=== PATIENT | male | born 1970 | race African-American/Black ===

== ENCOUNTER 2022-06-12 15:37 | Inpatient (IN) | payer BC, MEDICAID ==
[~2022-06-12] VITALS: Ht 172.7 cm; Wt 60.8 kg
[~2022-06-12 15:37] MED LIST: AMLO2.5T45 PO; CHOL100046 PO; LOSA50TA41 PO; OMEP20CA14 PO
[2022-06-12] MEDS ORDERED: albuterol (15:40)
[2022-06-12] MEDS ORDERED: IPRATROPIUM BROMIDE (0.02%) 0.5MG/2.5ML NEB HHN STA (15:49)
[2022-06-12] MEDS ORDERED: METHYLPREDNISOLONE SOD SUCC 125 MG/2 ML VIAL IV STA (15:49)
[2022-06-12] MEDS ORDERED: ONDANSETRON HCL 4MG/2ML INJ IV STA ×2 (15:49→18:16)
[2022-06-12] MEDS ORDERED: MORPHINE SULFATE 4 MG/ML CPJ (NOT FOR IM USE) IV STA ×2 (15:49→18:16)
[2022-06-12] MEDS ORDERED: ALBUTEROL (0.083%) 2.5MG/3ML NEB HHN STA (15:49)
[2022-06-12] MEDS ORDERED: FUROSEMIDE 40MG/4ML VIAL IVP ONE (16:00)
[2022-06-12] MEDS ORDERED: SODIUM CHLORIDE 0.9% 1,000 ML IV ONE (16:00)
[2022-06-12 16:11] LABS: BASOPHILS % 0.5 % (0.0-2.0); HEMATOCRIT. 30.2 % (42.0-52.0); HEMOGLOBIN. 8.8 g/dL (14.0-18.0); LYMPHOCYTES % 33.9 % (20.0-50.0); MEAN CORPUSCULAR HEMOGLOBIN 20.2 pg (28.0-32.0); MEAN CORPUSCULAR VOLUME 69.6 fL (80.0-94.0); MEAN PLATELET VOLUME 8.6 fl (7.4-10.4); MONOCYTES % 11.9 % (2.0-8.0); NEUTROPHILS % 53.7 % (40.0-76.0); PLATELET 332 x1000/uL (130-400); RED BLOOD CELL COUNT 4.35 mill/uL (4.7-6.1); RED CELL DISTRIBUTION WIDTH 24.9 % (11.6-14.6)
[2022-06-12 16:17] LABS: CHLORIDE 105 mEq/L (98-107)
[2022-06-12 18:18] LABS: PLATELET ESTIMATE NORMAL
[2022-06-12] MEDS ORDERED: IOHEXOL-350 100 ML BOTTLE ONE (18:29)
[2022-06-12] MEDS ORDERED: ACETAMINOPHEN 500MG TABLET PO ONE (20:45)
[2022-06-12] MEDS ORDERED: POTASSIUM CHLORIDE 20MEQ TABLET SR PO ONE (21:15)
[2022-06-12 22:40] VITALS: BP 156/108
[2022-06-12 22:58] VITALS: BP 156/108
[2022-06-13] VITALS: BP 142/78
[2022-06-13] MEDS ORDERED: HYDROCODONE/ACETAMINOPHEN 5/325MG TABLET PO PRN (00:15)
[2022-06-13] MEDS ORDERED: CLONIDINE 0.1MG TABLET PO PRN (00:15)
[2022-06-13] MEDS ORDERED: ACETAMINOPHEN 650MG/20.3ML UDC PO PRN (00:15)
[2022-06-13] MEDS ORDERED: LEVOFLOXACIN 500MG TABLET PO SCH ×2 (01:00→22:00)
[2022-06-13 04:00] VITALS: BP 162/110
[2022-06-13] MEDS ORDERED: POTASSIUM CHLORIDE 20MEQ TABLET SR PO NR (04:00)
[2022-06-13 05:33] LABS: HEMOGLOBIN. 7.8 g/dL (14.0-18.0); LYMPHOCYTES % 7.2 % (20.0-50.0); MEAN CORPUSCULAR HEMOGLOBIN 20.5 pg (28.0-32.0); MEAN PLATELET VOLUME 8.8 fl (7.4-10.4); NEUTROPHILS % 89.8 % (40.0-76.0); PLATELET 245 x1000/uL (130-400); RED BLOOD CELL COUNT 3.83 mill/uL (4.7-6.1); RED CELL DISTRIBUTION WIDTH 24.3 % (11.6-14.6)
[2022-06-13 06:02] LABS: CHLORIDE 103 mEq/L (98-107)
[2022-06-13 06:32] LABS: HDL CHOLESTEROL 91 mg/dL (40-59); LDL CHOLESTEROL 59 mg/dL (5-100)
[2022-06-13 08:00] VITALS: BP 162/101
[2022-06-13] MEDS ORDERED: METHYLPREDNISOLONE SOD SUCC 40 MG/ML VIAL IV SCH (09:00)
[2022-06-13] MEDS ORDERED: ENOXAPARIN 40MG/0.4ML SYR SUBCUT SCH (09:00)
[2022-06-13] MEDS ORDERED: POTASSIUM CHLORIDE 20MEQ TABLET SR PO SCH (09:00)
[2022-06-13] MEDS: AMLODIPINE 10MG TABLET PO SCH (11:22)
[2022-06-13 12:00] VITALS: BP 161/95
[2022-06-13] MEDS ORDERED: LORAZEPAM 1MG TABLET PO PRN (12:30)
[2022-06-13 14:43] LABS: TOTAL IRON BINDING CAPACITY 399 ug/dL (250-450)
[2022-06-13 15:12] LABS: FOLIC ACID (FOLATE) SERUM 5.1 ng/mL (>5.38)
[2022-06-13 16:00] VITALS: BP 144/96
[2022-06-13 20:00] VITALS: BP 150/106
[2022-06-13] MEDS: PANTOPRAZOLE 40MG DR TABLET PO SCH (20:41)
[2022-06-13] MEDS ORDERED: PANTOPRAZOLE 40MG DR TABLET PO SCH (21:00)
[2022-06-14] VITALS: BP 145/91
[2022-06-14 04:00] VITALS: BP 148/95
[2022-06-14] MEDS: IPRATROPIUM/ALBUTEROL 0.5-3(2.5)MG/3ML NEB HHN SCH ×4 (05:04→21:03)
[2022-06-14] MEDS: PANTOPRAZOLE 40MG DR TABLET PO SCH ×2 (06:38→21:12)
[2022-06-14 08:00] VITALS: BP 138/87
[2022-06-14] MEDS: FOLIC ACID/VITAMIN B COMP W-C TABLET PO SCH (08:56)
[2022-06-14] MEDS: THIAMINE HCL 100MG TABLET PO SCH (08:57)
[2022-06-14] MEDS: AMLODIPINE 10MG TABLET PO SCH (08:57)
[2022-06-14 12:00] VITALS: BP 149/101
[2022-06-14 12:56] LABS: *AMPHETAMINES SCREEN URINE NEGATIVE (NEGATIVE); *BARBITURATES SCREEN URINE NEGATIVE (NEGATIVE); *BENZODIAZEPINES SCREEN URINE NEGATIVE (NEGATIVE); *COCAINE SCREEN URINE NEGATIVE (NEGATIVE); CANNABINOID URINE SCREEN NEGATIVE (NEGATIVE); METHADONE URINE SCREEN NEGATIVE (NEGATIVE); OPIATES URINE SCREEN PRESUMTIVE POSITIVE (NEGATIVE); PHENCYCLIDINE URINE SCREEN NEGATIVE (NEGATIVE)
[2022-06-14 16:00] VITALS: BP 143/103
[2022-06-14] MEDS: IRON SUCROSE COMPLEX 100 MG/5 ML ML IV SCH (17:43)
[2022-06-14 18:06] LABS: BASOPHILS % 0.3 % (0.0-2.0); EOSINOPHILS % 0.1 % (0.0-5.0); HEMATOCRIT. 33.5 % (42.0-52.0); HEMOGLOBIN. 9.7 g/dL (14.0-18.0); LYMPHOCYTES % 25.3 % (20.0-50.0); MEAN CORPUSCULAR HEMOGLOBIN 20.1 pg (28.0-32.0); MEAN CORPUSCULAR VOLUME 69.4 fL (80.0-94.0); MEAN PLATELET VOLUME 8.4 fl (7.4-10.4); MONOCYTES % 12.6 % (2.0-8.0); NEUTROPHILS % 61.7 % (40.0-76.0); PLATELET 261 x1000/uL (130-400); RED BLOOD CELL COUNT 4.83 mill/uL (4.7-6.1); RED CELL DISTRIBUTION WIDTH 26.4 % (11.6-14.6)
[2022-06-14 18:24] LABS: CHLORIDE 100 mEq/L (98-107)
[2022-06-14 20:00] VITALS: BP 140/101
[2022-06-15] VITALS: BP 146/93
[2022-06-15] MEDS: IPRATROPIUM/ALBUTEROL 0.5-3(2.5)MG/3ML NEB HHN SCH ×6 (01:59→20:00)
[2022-06-15 04:00] VITALS: BP 150/99
[2022-06-15 05:55] LABS: BASOPHILS % 0.5 % (0.0-2.0); EOSINOPHILS % 0.9 % (0.0-5.0); HEMATOCRIT. 28.3 % (42.0-52.0); HEMOGLOBIN. 8.5 g/dL (14.0-18.0); LYMPHOCYTES % 25.2 % (20.0-50.0); MEAN CORPUSCULAR HEMOGLOBIN 20.6 pg (28.0-32.0); MEAN CORPUSCULAR VOLUME 68.5 fL (80.0-94.0); MEAN PLATELET VOLUME 8.7 fl (7.4-10.4); MONOCYTES % 13.6 % (2.0-8.0); NEUTROPHILS % 59.8 % (40.0-76.0); PLATELET 218 x1000/uL (130-400); RED BLOOD CELL COUNT 4.13 mill/uL (4.7-6.1); RED CELL DISTRIBUTION WIDTH 26.4 % (11.6-14.6)
[2022-06-15 05:58] LABS: PROTHROMBIN TIME 11.1 sec (9.6-11.0)
[2022-06-15] MEDS: PANTOPRAZOLE 40MG DR TABLET PO SCH ×2 (06:46→21:14)
[2022-06-15 07:01] LABS: CHLORIDE 101 mEq/L (98-107)
[2022-06-15] MEDS: AMLODIPINE 10MG TABLET PO SCH (09:00)
[2022-06-15] MEDS: FOLIC ACID/VITAMIN B COMP W-C TABLET PO SCH (09:00)
[2022-06-15] MEDS: THIAMINE HCL 100MG TABLET PO SCH (09:00)
[2022-06-15 09:16] VITALS: BP 146/95
[2022-06-15] MEDS ORDERED: KCL 20MEQ/100ML PREMIX 100 ML IV NR (11:00)
[2022-06-15 12:00] VITALS: BP 144/99
[2022-06-15] MEDS ORDERED: OMEP40CA20 MT (12:46)
[2022-06-15 15:36] LABS: PLATELET ESTIMATE NORMAL
[2022-06-15] MEDS ORDERED: PROPOFOL 200MG/20ML VIAL IV ONE (16:19)
[2022-06-15] MEDS ORDERED: MIDAZOLAM HCL 2 MG/2 ML VIAL ONE (16:19)
[2022-06-15] MEDS ORDERED: DEXAMETHASONE 4MG/ML 1ML VIAL ONE (16:42)
[2022-06-15] MEDS ORDERED: ONDANSETRON HCL 4MG/2ML INJ ONE (16:42)
[2022-06-15 18:00] VITALS: BP 133/102
[2022-06-15] MEDS: IRON SUCROSE COMPLEX 100 MG/5 ML ML IV SCH (18:27)
[2022-06-15 20:00] VITALS: BP 140/97
[2022-06-15] MEDS ORDERED: NALOXONE HCL 0.4MG/ML VIAL IV PRN (22:15)
[2022-06-16] VITALS: BP 135/92
[2022-06-16] MEDS: IPRATROPIUM/ALBUTEROL 0.5-3(2.5)MG/3ML NEB HHN SCH ×2 (01:02→04:00)
[2022-06-16 04:00] VITALS: BP 137/99
[2022-06-16] MEDS: PANTOPRAZOLE 40MG DR TABLET PO SCH (06:17)
[2022-06-16 07:08] LABS: BASOPHILS % 0.2 % (0.0-2.0); EOSINOPHILS % 0.2 % (0.0-5.0); HEMATOCRIT. 29.8 % (42.0-52.0); HEMOGLOBIN. 8.9 g/dL (14.0-18.0); LYMPHOCYTES % 11.5 % (20.0-50.0); MEAN CORPUSCULAR HEMOGLOBIN 20.8 pg (28.0-32.0); MEAN CORPUSCULAR VOLUME 69.3 fL (80.0-94.0); MEAN PLATELET VOLUME 8.7 fl (7.4-10.4); MONOCYTES % 12.7 % (2.0-8.0); NEUTROPHILS % 75.4 % (40.0-76.0); PLATELET 225 x1000/uL (130-400); RED CELL DISTRIBUTION WIDTH 27.2 % (11.6-14.6)
[2022-06-16 07:33] LABS: CHLORIDE 103 mEq/L (98-107)
[2022-06-16] MEDS: FOLIC ACID/VITAMIN B COMP W-C TABLET PO SCH (08:53)
[2022-06-16] MEDS: THIAMINE HCL 100MG TABLET PO SCH (08:53)
[2022-06-16] MEDS: AMLODIPINE 10MG TABLET PO SCH (08:53)
[2022-06-16 12:00] VITALS: BP 139/74
[2022-06-16 13:11] VITALS: BP 139/74
== END 2022-06-16 13:40 | disposition home or self-care (01) | DRG 241 ==
LOC: ER 15:37 → 7WST 19:09 → EDBEDREQTM 19:10 → EDBEDREQ 19:10 → ENRESERV 20:46
PROVIDERS: ADMIT Internal Medicine Pulmonary Disease; ATTEND Internal Medicine Pulmonary Disease
PROC: 0DB68ZX Excision of Stomach, Via Natural or Artificial Opening Endoscopic, Diagnostic (ICD-10-PCS; principal; 2022-06-15)
DX: K29.71 Gastritis, unspecified, with bleeding (principal); E44.0 Moderate protein-calorie malnutrition; K76.0 Fatty (change of) liver, not elsewhere classified; I11.9 Hypertensive heart disease without heart failure; D50.9 Iron deficiency anemia, unspecified; E55.9 Vitamin D deficiency, unspecified; E87.6 Hypokalemia; F10.20 Alcohol dependence, uncomplicated; Z20.822 Contact with and (suspected) exposure to COVID-19; K21.9 Gastro-esophageal reflux disease without esophagitis; J44.9 Chronic obstructive pulmonary disease, unspecified; I25.10 Atherosclerotic heart disease of native coronary artery without angina pectoris; R06.02 Shortness of breath; J98.11 Atelectasis; F17.210 Nicotine dependence, cigarettes, uncomplicated; Z88.1 Allergy status to other antibiotic agents; Z68.20 Body mass index [BMI] 20.0-20.9, adult
CPT/HCPCS: 36415; 71045; 71275; 74176; 76700; 80048; 80053; 80061; 80076; 80305; 82248; 82270; 82607; 82728; 82746; 83540; 83550; 83880; 84436; 84443; 85025; 85379; 87426; 88305; 88312; 88313; 93005; 94640; 99285; J1100; J2250; J2270; J2405; J2704; J2930; J3480; J7030; Q9967

== ENCOUNTER 2022-07-26 16:38 | Inpatient (IN) | payer MEDICAID, OTHER ==
[~2022-07-26] VITALS: Ht 172.7 cm; Wt 58.6 kg
[~2022-07-26 16:38] MED LIST changes: -OMEP20CA14 PO; +OMEP40CA20 MT; +albuterol
[2022-07-26 17:47] LABS: HEMATOCRIT. 41.9 % (42.0-52.0); HEMOGLOBIN. 12.7 g/dL (14.0-18.0); MEAN CORPUSCULAR HEMOGLOBIN 27.3 pg (28.0-32.0); MEAN CORPUSCULAR VOLUME 89.9 fL (80.0-94.0); MEAN PLATELET VOLUME 8.4 fl (7.4-10.4); PLATELET 180 x1000/uL (130-400); RED BLOOD CELL COUNT 4.66 mill/uL (4.7-6.1); RED CELL DISTRIBUTION WIDTH 28.4 % (11.6-14.6)
[2022-07-26 17:55] LABS: CHLORIDE 99 mEq/L (98-107)
[2022-07-26] MEDS ORDERED: SODIUM CHLORIDE 0.9% 1,000 ML IV ONE (18:00)
[2022-07-26 18:05] LABS: ETHANOL BLOOD < 10 mg/dL
[2022-07-26] MEDS ORDERED: MECLIZINE 25MG TABLET PO ONE (19:15)
[2022-07-26 20:19] LABS: CLARITY URINE CLEAR (CLEAR); COLOR URINE YELLOW (YELLOW); KETONES URINE 2+ (NEGATIVE); LEUKOCYTE ESTERASE URINE NEGATIVE (NEGATIVE); NITRITE URINE NEGATIVE (NEGATIVE); OCCULT BLOOD URINE NEGATIVE (NEGATIVE); PROTEIN URINE 1+ (NEGATIVE); SPECIFIC GRAVITY URINE 1.016 (1.005-1.030)
[2022-07-26 20:34] LABS: *AMPHETAMINES SCREEN URINE NEGATIVE (NEGATIVE); *BARBITURATES SCREEN URINE NEGATIVE (NEGATIVE); *BENZODIAZEPINES SCREEN URINE NEGATIVE (NEGATIVE); *COCAINE SCREEN URINE NEGATIVE (NEGATIVE); CANNABINOID URINE SCREEN NEGATIVE (NEGATIVE); METHADONE URINE SCREEN NEGATIVE (NEGATIVE); OPIATES URINE SCREEN NEGATIVE (NEGATIVE); PHENCYCLIDINE URINE SCREEN NEGATIVE (NEGATIVE)
[2022-07-26 20:53] LABS: INR 0.9; PARTIAL THROMBOPLASTIN TIME 24.1 sec (23.4-31.0); PROTHROMBIN TIME 10.2 sec (9.6-11.0)
[2022-07-26 20:54] LABS: PLATELET ESTIMATE NORMAL
[2022-07-26] MEDS ORDERED: ENOXAPARIN 60MG/0.6ML SYR SUBCUT ONE (22:30)
[2022-07-26 23:15] VITALS: BP 149/95
[2022-07-26] MEDS ORDERED: IPRATROPIUM/ALBUTEROL 0.5-3(2.5)MG/3ML NEB HHN PRN (23:15)
[2022-07-26] MEDS ORDERED: ACETAMINOPHEN 325MG TABLET PO PRN (23:15)
[2022-07-26] MEDS ORDERED: ONDANSETRON HCL 4MG/2ML INJ IV PRN (23:15)
[2022-07-26] MEDS: SODIUM CHLORIDE 0.9% 1,000 ML IV SCH (23:15)
[2022-07-26] MEDS ORDERED: ZOLPIDEM TARTRATE 5MG TABLET PO PRN (23:15)
[2022-07-26] MEDS ORDERED: CLONIDINE 0.1MG TABLET PO PRN (23:15)
[2022-07-27] VITALS: BP 126/79
[2022-07-27 04:00] VITALS: BP 145/94
[2022-07-27 07:21] LABS: BASOPHILS % 0.3 % (0.0-2.0); EOSINOPHILS % 0.2 % (0.0-5.0); HEMATOCRIT. 32.1 % (42.0-52.0); HEMOGLOBIN. 10.2 g/dL (14.0-18.0); LYMPHOCYTES % 17.2 % (20.0-50.0); MEAN CORPUSCULAR HEMOGLOBIN 27.9 pg (28.0-32.0); MEAN CORPUSCULAR VOLUME 87.4 fL (80.0-94.0); MEAN PLATELET VOLUME 9.1 fl (7.4-10.4); MONOCYTES % 14.9 % (2.0-8.0); NEUTROPHILS % 67.4 % (40.0-76.0); PLATELET 114 x1000/uL (130-400); RED BLOOD CELL COUNT 3.67 mill/uL (4.7-6.1); RED CELL DISTRIBUTION WIDTH 28.1 % (11.6-14.6)
[2022-07-27 08:00] VITALS: BP 154/98
[2022-07-27] MEDS: LOSARTAN POTASSIUM 50 MG TABLET PO SCH ×2 (08:49→17:00)
[2022-07-27] MEDS: AMLODIPINE 2.5MG TABLET PO SCH (08:50)
[2022-07-27] MEDS: ENOXAPARIN 40MG/0.4ML SYR SUBCUT SCH (08:50)
[2022-07-27 12:00] VITALS: BP 145/99
[2022-07-27 16:00] VITALS: BP 145/103
[2022-07-27] MEDS: SODIUM CHLORIDE 0.9% 1,000 ML IV SCH (19:15)
[2022-07-27 20:00] VITALS: BP 140/99
[2022-07-28] VITALS: BP 148/100
[2022-07-28 04:00] VITALS: BP 144/89
[2022-07-28 08:00] VITALS: BP 144/102
[2022-07-28] MEDS: ENOXAPARIN 40MG/0.4ML SYR SUBCUT SCH (08:53)
[2022-07-28] MEDS: AMLODIPINE 2.5MG TABLET PO SCH (08:53)
[2022-07-28] MEDS: LOSARTAN POTASSIUM 50 MG TABLET PO SCH ×2 (08:54→17:27)
[2022-07-28 12:00] VITALS: BP_SYST 115; BP_SYST 117; BP_SYST 127; BP_DIAS 62; BP_DIAS 67; BP_DIAS 68
[2022-07-28] MEDS: SODIUM CHLORIDE 0.9% 1,000 ML IV SCH (15:15)
[2022-07-28 16:00] VITALS: BP 126/68
[2022-07-28 16:38] VITALS: BP 124/68
== END 2022-07-28 17:55 | disposition home or self-care (01) | DRG 48 ==
LOC: ER 16:38 → 7WST 19:54 → EDBEDREQTM 20:34 → EDBEDREQ 20:34 → ENRESERV 21:37
PROVIDERS: ADMIT Internal Medicine Pulmonary Disease; ATTEND Internal Medicine Pulmonary Disease
PROC: 4A10X4Z Monitoring of Central Nervous Electrical Activity, External Approach (ICD-10-PCS; principal; 2022-07-26)
DX: G90.8 Other disorders of autonomic nervous system (principal); N17.0 Acute kidney failure with tubular necrosis; D64.9 Anemia, unspecified; J44.9 Chronic obstructive pulmonary disease, unspecified; R65.10 Systemic inflammatory response syndrome (SIRS) of non-infectious origin without acute organ dysfunction; I10 Essential (primary) hypertension; R06.00 Dyspnea, unspecified; F10.10 Alcohol abuse, uncomplicated; F17.200 Nicotine dependence, unspecified, uncomplicated; Z88.8 Allergy status to other drugs, medicaments and biological substances; Z79.899 Other long term (current) drug therapy
CPT/HCPCS: 36415; 71045; 78582; 80048; 80053; 80061; 80305; 80320; 81003; 83880; 84484; 85025; 93005; 93306; 93880; 99285; A9558; J1650; J7030; J8597; G0480

== ENCOUNTER 2023-09-19 12:53 | Emergency (ER) | payer MEDICAID, OTHER ==
[~2023-09-19] VITALS: Ht 172.7 cm; Wt 63.0 kg
[~2023-09-19 12:53] MED LIST changes: +FOLI-43 MT
[2023-09-19 13:08] VITALS: BP 180/124; TEMP 98.6; O2SAT 98
[2023-09-19 13:10] VITALS: PULSE 122; RESP 18
[2023-09-19] MEDS ORDERED: HYDR-4009 MT (16:25)
== END 2023-09-19 17:06 | disposition home or self-care (01) ==
LOC: ER 13:07
DX: S20.219A Contusion of unspecified front wall of thorax, initial encounter (principal); J45.909 Unspecified asthma, uncomplicated; I10 Essential (primary) hypertension; Z88.8 Allergy status to other drugs, medicaments and biological substances; W18.39XA Other fall on same level, initial encounter; Y93.89 Activity, other specified; Y92.89 Other specified places as the place of occurrence of the external cause; Y99.8 Other external cause status
CPT/HCPCS: 71250; 99284